=== PATIENT | male | born 1965 | race Caucasian/White ===

== ENCOUNTER 2020-12-30 19:57 | Inpatient (IN) | payer OTHER ==
[~2020-12-30] VITALS: Ht 165.1 cm; Wt 114.9 kg
[2020-12-31 05:01] LABS: HEMOGLOBIN 15.5 gm/dl (14.0-17.5); RED BLOOD COUNT 4.74 M/UL (4.20-5.50); WHITE BLOOD COUNT 28.7 K/UL (4.5-11.0)
[2020-12-31] MEDS ORDERED: CELECOXIB200 MG PO (05:13)
[2020-12-31] MEDS ORDERED: CLONAZEPAM1 MG PO (05:14)
[2020-12-31] MEDS ORDERED: FLONASE 0.05% N16 GM (05:16)
[2020-12-31] MEDS ORDERED: GABAPENTIN600 MG PO (05:17)
[2020-12-31] MEDS ORDERED: MECLIZINE HCL25 MG PO (05:18)
[2020-12-31] MEDS ORDERED: PEG3350510 GM PO (05:19)
[2020-12-31] MEDS ORDERED: CRESTOR20 MG PO (05:20)
[2020-12-31] MEDS ORDERED: SPIRONOLACTONE1 EACH PO (05:21)
[2020-12-31] MEDS ORDERED: VITAMIN D21250 MCG PO (05:22)
[2020-12-31] MEDS ORDERED: PROTONIX 40 MG40 M1 PO (05:23)
[2020-12-31] MEDS ORDERED: TRAMADOL HCL50 MG PO (05:23)
[2020-12-31 05:37] LABS: BUN/CREATININE RATIO 25 (0-10)
[2021-01-01 02:48] LABS: HEMOGLOBIN 14.2 gm/dl (14.0-17.5); RED BLOOD COUNT 4.4 M/UL (4.20-5.50); WHITE BLOOD COUNT 21.9 K/UL (4.5-11.0)
[2021-01-01 03:18] LABS: BUN/CREATININE RATIO 25 (0-10)
[2021-01-01] MEDS ORDERED: EPIPEN 2-P0.3 MG/0.3 INJ (09:40)
[2021-01-01] MEDS ORDERED: MULTAQ 400 MG400 MG PO (09:40)
[2021-01-01] MEDS ORDERED: ELIQUIS 5 MG TAB5 MG PO (09:40)
[2021-01-01] MEDS ORDERED: LOPRESSOR 25 MG25 MG PO (09:40)
== END 2021-01-01 11:55 | disposition home or self-care (01) | DRG 309 ==
LOC: PROG CARE 12-31 03:00
PROVIDERS: Internal Medicine; ADMIT Internal Medicine Infectious Disease
PROC: B24BZZ4 Ultrasonography of Heart with Aorta, Transesophageal (ICD-10-PCS; principal; 2020-12-31)
DX: I48.0 Paroxysmal atrial fibrillation (principal); T78.2XXA Anaphylactic shock, unspecified, initial encounter; I10 Essential (primary) hypertension; E78.00 Pure hypercholesterolemia, unspecified; Z20.822 Contact with and (suspected) exposure to COVID-19; E66.9 Obesity, unspecified; F17.210 Nicotine dependence, cigarettes, uncomplicated; T63.441A Toxic effect of venom of bees, accidental (unintentional), initial encounter; X58.XXXA Exposure to other specified factors, initial encounter; I07.1 Rheumatic tricuspid insufficiency; Z88.0 Allergy status to penicillin; Z91.030 Bee allergy status; Z90.49 Acquired absence of other specified parts of digestive tract; Z79.01 Long term (current) use of anticoagulants
CPT/HCPCS: ECHO; 36415; 71045; 71046; 80053; 81001; 82550; 82553; 83605; 83880; 84439; 84443; 84484; 85025; 86140; 87040; 93005; 93306; 93312; 93320; J1200; J1650; J2250; J2920; J3010; U0002

== ENCOUNTER → 2021-12-07 | Outpatient (CLI) | payer OTHER ==
[~2021-12-07] MED LIST: CELECOXIB200 MG PO; CLONAZEPAM1 MG PO; CRESTOR20 MG PO; ELIQUIS 5 MG TAB5 MG PO; EPIPEN 2-P0.3 MG/0.3 INJ; FLONASE 0.05% N16 GM; GABAPENTIN600 MG PO; LOPRESSOR 25 MG25 MG PO; MECLIZINE HCL25 MG PO; MULTAQ 400 MG400 MG PO; PEG3350510 GM PO; PROTONIX 40 MG40 M1 PO; SPIRONOLACTONE1 EACH PO; TRAMADOL HCL50 MG PO; VITAMIN D21250 MCG PO
== END ==
LOC: HEART 5 09:15
DX: I20.9 Angina pectoris, unspecified (principal); I49.3 Ventricular premature depolarization
CPT/HCPCS: 78452; A9502